=== PATIENT | male | born 1945 | race Caucasian/White ===

== ENCOUNTER → 2017-07-18 | Outpatient (CLI) | payer BC ==
[2017-07-18 09:02] LABS: ALT 44 U/L (21-72); AST 25 U/L (17-59)
== END | disposition home or self-care (01) ==
LOC: LABWHC1 08:09
PROVIDERS: ATTEND Podiatrist Foot & Ankle Surgery
DX: K74.60 Unspecified cirrhosis of liver (principal)
CPT/HCPCS: 36415; 84450; 84460

== ENCOUNTER → 2018-02-26 | Outpatient (CLI) | payer OTHER ==
--- NOTE | 2018-02-26 16:11 | XR ---
EXAMINATION TYPE: XR chest 2V DATE OF EXAM: 02/26/2018 COMPARISON: None HISTORY: 72-year-old male with cough for 2 months TECHNIQUE: Frontal and lateral views FINDINGS: Heart normal size. Aorta and pulmonary vasculature within normal limits. Slight eventration of the an terior hemidiaphragms. Strandy atelectasis medial lung bases. No consolidation or pleural effusion. V ertebroplasty changes in the lumbar spine. IMPRESSION: No acute cardiopulmonary process.
== END | disposition home or self-care (01) ==
LOC: RADXRMAIN 15:04
PROVIDERS: ATTEND Otolaryngology
DX: R05 Cough (principal)
CPT/HCPCS: 71046

== ENCOUNTER → 2018-03-21 | Outpatient (CLI) | payer BC ==
[2018-03-21 11:00] LABS: Basophils % (A) 1 %; Eosinophils # (A) 0.1 k/uL (0-0.7); Eosinophils % (A) 2 %; HCT 45.4 % (39.0-53.0); HGB 15.4 gm/dL (13.0-17.5); Lymphocytes # (A) 1.2 k/uL (1.0-4.8); Lymphocytes % (A) 20 %; MCH 30.5 pg (25.0-35.0); MCHC 33.9 g/dL (31.0-37.0); MCV 89.9 fL (80.0-100.0); Mean Platelet Volume 7.3; Monocytes # (A) 0.4 k/uL (0-1.0); Monocytes % (A) 6 %; Neutrophils % (A) 70 %; Platelet Count 226 k/uL (150-450); RBC 5.05 m/uL (4.30-5.90); RDW 13.5 % (11.5-15.5); WBC 5.7 k/uL (3.8-10.6)
[2018-03-21 11:18] LABS: ALT 32 U/L (21-72); AST 24 U/L (17-59); Alkaline Phosphatase 44 U/L (38-126); Anion Gap 10 mmol/L; Bilirubin, Delta 0.3 mg/dL (0.0-0.2); Bilirubin,Unconjugated 0.6 mg/dL (0.0-1.1); Blood Urea Nitrogen 18 mg/dL (9-20); Calcium 9.1 mg/dL (8.4-10.2); Carbon Dioxide 26 mmol/L (22-30); Chloride 107 mmol/L (98-107); Glucose 87 mg/dL (74-99); Potassium 4.5 mmol/L (3.5-5.1); Sodium 143 mmol/L (137-145); Total Bilirubin 0.9 mg/dL (0.2-1.3); Total Protein 5.9 g/dL (6.3-8.2)
== END | disposition home or self-care (01) ==
LOC: LABWHC1 10:41
PROVIDERS: ATTEND Orthopaedic Surgery Sports Medicine
DX: M54.5 Low back pain (principal); M51.36 Other intervertebral disc degeneration, lumbar region; R53.83 Other fatigue; Z85.46 Personal history of malignant neoplasm of prostate
CPT/HCPCS: 36415; 80053; 82248; 82607; 84443; 85025

== ENCOUNTER → 2018-05-10 | Outpatient (CLI) | payer BC ==
[2018-05-10 09:25] LABS: HCT 46.1 % (39.0-53.0); HGB 15.9 gm/dL (13.0-17.5); MCH 31.4 pg (25.0-35.0); MCHC 34.4 g/dL (31.0-37.0); MCV 91.3 fL (80.0-100.0); Mean Platelet Volume 6.4; Platelet Count 220 k/uL (150-450); RBC 5.05 m/uL (4.30-5.90); RDW 13.6 % (11.5-15.5); WBC 8.1 k/uL (3.8-10.6)
[2018-05-10 09:32] LABS: Appearance,Urine Clear (Clear); Bilirubin,Urine Negative (Negative); Blood,Urine Negative (Negative); Color,Urine Yellow; Glucose,Urine (UA) Negative (Negative); Ketones,Urine Negative (Negative); Leukocyte Esterase,Urine Negative (Negative); Nitrite,Urine Negative (Negative); PH, Urine 6.5 (5.0-8.0); Protein,Urine Negative (Negative); Specific Gravity,Urine 1.017 (1.001-1.035); Urobilinogen,Urine <2.0 mg/dL (<2.0)
[2018-05-10 09:36] LABS: Partial Thromboplastin Time 24.1 sec (22.0-30.0); Prothrombin Time 9.7 sec (9.0-12.0)
[2018-05-10 09:44] LABS: ALT 47 U/L (21-72); AST 29 U/L (17-59); Alkaline Phosphatase 50 U/L (38-126); Anion Gap 9 mmol/L; Blood Urea Nitrogen 19 mg/dL (9-20); Calcium 9.3 mg/dL (8.4-10.2); Carbon Dioxide 25 mmol/L (22-30); Chloride 106 mmol/L (98-107); Glucose 98 mg/dL (74-99); Potassium 4.4 mmol/L (3.5-5.1); Sodium 140 mmol/L (137-145); Total Bilirubin 0.9 mg/dL (0.2-1.3); Total Protein 5.9 g/dL (6.3-8.2)
== END | disposition home or self-care (01) ==
LOC: LABPAT 08:41
PROVIDERS: ATTEND Orthopaedic Surgery Sports Medicine
DX: Z01.812 Encounter for preprocedural laboratory examination (principal)
CPT/HCPCS: 36415; 80053; 81003; 85027; 85610; 85730; 87070

== ENCOUNTER 2018-05-24 09:21 | Inpatient (IN) | payer BC, MEDICARE ==
[2018-05-18 10:30] VITALS: BMI 26.0
[~2018-05-24 09:21] MED LIST: ACETAMINOPHEN TAB 500 MG TAB PO ONE; DEXAMETHASONE SOD PHOSPHATE 10 MG/ML 1 ML VIAL IV ONE; HYDROmorphone 0.5 MG/0.5 ML SYRINGE IVP PRN; MIDAZOLAM 2 MG/2 ML VIAL IV PRN; ONDANSETRON 4 MG/2 ML VIAL IVP ONE; TRANEXAMIC ACID 1,000 MG in SODIUM CHLORIDE 0.9% 50 ML IVPB ONE; ceFAZolin IN SWFI 2 GM/20 ML SYRINGE IVP ONE
[2018-05-24] MEDS: LACTATED RINGERS 1,000 ML IV SCH ×3 (10:01→20:42)
[2018-05-24] MEDS ORDERED: ROPIVACAINE 246.25 MG, EPINEPHrine 0.5 MG, KETOROLAC 30 MG, cloNIDine HCL/PF 80 MCG, WA... MISCELLANE ONE ×5 (10:49)
[2018-05-24] MEDS ORDERED: MORPHINE SULFATE (PF) 0.3 MG/0.3 ML SYR ONE (11:14)
[2018-05-24] MEDS ORDERED: SODIUM CHLORIDE 0.9% 100 ML BAG ONE (11:14)
[2018-05-24] MEDS ORDERED: MIDAZOLAM 2 MG/2 ML VIAL ONE (11:14)
[2018-05-24] MEDS ORDERED: TRANEXAMIC ACID 1,000 MG/10 ML VIAL ONE (11:14)
[2018-05-24] MEDS ORDERED: fentaNYL (PF) 50 MCG/ML 2 ML AMP ONE (11:14)
[2018-05-24] MEDS ORDERED: ceFAZolin 3,000 MG in SODIUM CHLORIDE 0.9% IRRIGATIO 3,000 ML IRRIGATION ONE (11:30)
[2018-05-24] MEDS ORDERED: LACTATED RINGERS 1,000 ML IV ONE ×2 (12:40)
[2018-05-24] MEDS ORDERED: BISACODYL 10 MG SUPP RECTAL PRN (13:25)
[2018-05-24] MEDS ORDERED: ACETAMINOPHEN TAB 325 MG TAB PO PRN (13:25)
[2018-05-24] MEDS ORDERED: DIAZEPAM 5 MG TAB PO PRN (13:25)
[2018-05-24] MEDS ORDERED: traMADol 50 MG TAB PO PRN (13:25)
[2018-05-24] MEDS ORDERED: NA PHOS,M-B/NA PHOS,DI-BA 133 ML ENEMA RECTAL PRN (13:25)
[2018-05-24] MEDS ORDERED: HYDROcodone/APAP 7.5-325MG 1 EACH TAB PO PRN (13:25)
[2018-05-24] MEDS ORDERED: HYDROmorphone 0.5 MG/0.5 ML SYRINGE IVP PRN ×3 (13:25)
[2018-05-24] MEDS ORDERED: MAGNESIUM HYDROXIDE 2,400 MG/10 ML CUP PO PRN (13:25)
[2018-05-24] MEDS ORDERED: TEMAZEPAM 15 MG CAP PO PRN (13:25)
[2018-05-24] MEDS ORDERED: NALOXONE 0.4 MG/ML 1 ML VIAL IV PRN ×2 (13:25→14:08)
[2018-05-24] MEDS ORDERED: ONDANSETRON 4 MG/2 ML VIAL IVP PRN (13:25)
[2018-05-24] MEDS ORDERED: METOCLOPRAMIDE 5 MG/ML 2 ML VIAL IVP PRN (14:08)
[2018-05-24] MEDS ORDERED: diphenhydrAMINE 50 MG/ML 1 ML VIAL IVP PRN (14:08)
[2018-05-24] MEDS ORDERED: PROMETHAZINE INJ 6.25 MG in SODIUM CHLORIDE 0.9% 50 ML IVPB PRN (14:08)
[2018-05-24] MEDS ORDERED: NALBUPHINE 10 MG/ML VIAL (10ML MDV) IV PRN (14:08)
--- NOTE | 2018-05-24 14:10 | XR ---
EXAMINATION TYPE: XR knee limited RT DATE OF EXAM: 05/24/2018 CLINICAL HISTORY: Right knee pain and arthritis status post total knee replacement. TECHNIQUE: Portable AP and crosstable lateral views of the right knee are obtained immediately posto peratively. COMPARISON: None FINDINGS: Metallic hardware from total right knee arthroplasty is seen and appears satisfactory in a lignment and position. There is evidence of recent surgery with diffuse subcutaneous gas and mild so ft tissue swelling noted. IMPRESSION: METALLIC HARDWARE FROM TOTAL RIGHT KNEE ARTHROPLASTY IS SATISFACTORY IN ALIGNMENT.
--- NOTE | 2018-05-24 14:30 | OP ---
OPERATIVE REPORT DATE OF PROCEDURE: 05/24/2018 SURGEON: Tee Eli MD [facility] CODER: VASILE Santillan. PREOPERATIVE DIAGNOSIS: Right knee osteoarthrosis. POSTOPERATIVE DIAGNOSIS: Right knee osteoarthrosis. OPERATION: Right total knee arthroplasty. ANESTHESIA: Spinal with sedation. ESTIMATED BLOOD LOSS: 100 mL. TOURNIQUET TIME: 58 minutes at 250 mmHg. COMPLICATIONS: None apparent. DRAINS: None. DISPOSITION: Postanesthesia care unit. INDICATIONS: Wilbur is a 72-year-old male with longstanding history of right knee pain. History and physical examination are consistent with advanced right knee osteoarthrosis. He has been through significant course of nonoperative management up to this point. Further treatment options were discussed and he has decided to go forward with a right total knee arthroplasty. The risks of procedure were discussed with him in detail. These risks include, but are not limited to risk of infection, nerve damage, bleeding, pain and risk of deep vein thrombosis which could lead to fatal pulmonary embolism. There is also risk of loosening of the implant which could require revision operation. The patient understands these risks. All of his questions were answered to his satisfaction. An appropriate informed consent was obtained. DESCRIPTION OF THE PROCEDURE: The patient was identified in preoperative holding area. Surgical site was marked by both the patient and myself. He was given 2 g of Ancef IV for prophylactic purposes. He was then transferred to the operative suite. He was placed supine on the operative table. Spinal anesthetic was administered and dosed per the Anesthesia Department without apparent complication. Examination under anesthesia was then performed. The patient was approximately 5 degrees shy of full extension. He had 110 degrees of flexion. The medial collateral ligament, lateral collateral ligament and posterior cruciate ligaments were stable. A tourniquet was then placed high on the right upper thigh well-padded in preparation for surgery. The patient's right lower extremity was then prepped and draped in usual sterile fashion. Standard surgical pause was then undertaken to ensure that we were operating on the correct site and that appropriate preoperative antibiotics have been given. All staff in the room were in agreement and we proceeded. The outlines of the patella were marked with surgical pen. A planned 10-12 cm vertical incision centered over the patella was marked with surgical pen. The leg was then exsanguinated with an Esmarch dressing. The knee was then flexed and the tourniquet was inflated to 250 mmHg. The total tourniquet time for the procedure was 58 minutes The incision was then made with a 10 blade scalpel. Dissection was carried down sharply to the overlying fascia. Great care was taken to minimize the skin flaps. The knee was then exposed using a standard medial parapatellar approach. A small cuff of quadriceps tendon was then left for suturing. He was in a mild amount of varus preoperatively. A standard medial release was then made. Superficial medial collateral ligament was dissected off the bone around to the posterior aspect of the proximal tibia. The medial meniscus was then excised as well. The lateral meniscus was also released anteriorly. The leg was then externally rotated. The patella was everted. The knee was flexed. The retractors were then placed to protect the collateral ligaments. I then proceeded to remove the infrapatellar fat pad. This was excised sharply, tangentially with fibers of the patellar tendon. I then proceeded to remove peripheral osteophytes. This was done with a rongeur. I then proceeded with the distal femoral resection. He did have a small flexion contracture. I decided to take an extra 2 mm from the distal femur. A planned 11 mm resection was done. The femoral canal was then entered in the midline of the femur approximately 10 mm anterior to the origin of the posterior cruciate ligament. The twin was then advanced down the center of the femur and placed intramedullary. Based on preoperative radiographs, the angle between the anatomic and mechanical axis of the femur was approximately 4 to 5 degrees. The valgus angle of the distal femoral cutting guide was then set at 4 degrees for the right knee. This femoral cutting guide was then advanced over the intramedullary twin. This was seated firmly against the femur. I then as mentioned planned to take 11 mm off the distal femur. The cutting block was then secured onto the femur with pins. The jig was removed and the distal femoral cut was made through the slot of the block. The pins were then removed and the distal femoral cutting block was removed. The accuracy of the distal femoral cuts was checked with two flat bars. I then proceeded with femoral sizing. The posterior referencing sizing guide was held firmly against the resected distal surface of the femur. The posterior condyles were resting on the posterior plane of the guide. The sizing stylus was then placed onto the anterior femur. The size was measured as a size 8. I then assessed for femoral rotation. The plan was for 3 degrees of external rotation. Three degrees of external rotation was placed onto the jig. These holes were then marked. I then confirmed the rotation by 3 separate methods. This was done using the epicondylar axis as well as Whitesides line and posterior referencing. It was deemed that the external rotation was proper. I then went forward with placing the femoral cutting block. This was placed over the previously placed pin holes. The [place] wing was then placed onto the anterior slots to ensure that we would not notch the anterior femur with the anterior femoral cut. I then proceeded with the anterior femoral cut. This was flush with the anterior cortex of the femur. The posterior cuts were then made followed by the anterior chamfer cut, then the posterior chamfer cut. The cutting block was then removed. Throughout the resection, the collateral ligaments were protected with retractors. I then placed a trial size 8 femur. It fit very nice medial-lateral and fit flush with the distal end of the femur. The drill holes were then made. I then proceeded with the tibial cut. I planned for cruciate retaining knee. The guide was placed and set for varus valgus and then for slope. The height was set for approximate 2 mm resection from the medial tibial plateau which was the lower side. I was happy with the alignment and the amount of resection. The cutting block was then pinned to the proximal tibia. The alignment twin was removed and the proximal tibia was resected with a reciprocating saw. Again this was done with retractors protecting the collateral ligaments as well as the posterior cruciate ligament. I then proceeded to evaluate the flexion and extension gaps. A 10 mm block was placed. The flexion-extension gaps were equal. I then proceeded with resection of the posterior osteophytes. Very minimal posterior osteophytes. This was done using a curved osteotome. This resected the posterior osteophytes and posterior capsule stripping was also done off the posterior aspect of the femur at this time. The osteophytes were then removed. I then proceeded with resection of the patella. The thickness of patella was measured using the caliper. He had a very worn out patella. The lateral facet was very thin. He had decent thickness on the medial facet that was approximately 18 mm. I then performed a resection and confirmed the resection to be equal in 4 quadrants using a caliper. Approximately 12 mm bone remained after the resection. A 26 x 7.5 standard patellar trial was then placed. This was placed as medially as possible as this was the only place for good bone for a patellar implant as I said the lateral facet was completely worn out and very thin. The holes were then drilled and the trial was then placed. I then proceeded with sizing the tibial plate. A size E tibial plate fit very nicely. I then placed the trial femur, the tibial tray and patellar button. A 10 mm trial tibial insert was also placed. The components fit very nicely. He had full extension and flexion. The extension and flexion gaps were equal and stable to both varus and valgus stress. The patella tracked appropriately. The tibial tray rotation was marked with a Bovie. This was externally rotated properly. I then proceeded with tibial preparation. I first drilled the femoral holes, removed femoral component. The tibial tray was then set for proper external rotation as well as mediolateral placement onto the tibia. It was then pinned into place. I then proceeded with punching the keel. I then decided to proceed with cementing of all of our components. The knee was thoroughly irrigated with sterile saline solution via pulse lavage. The lateral geniculate artery was identified and cauterized. All blood was removed from the bone of the tibia, femur and patella with pulse lavage. I then proceed with cementing. Two packs of antibiotic bone cement prepared on the back table by the surgical instrument technician. I then proceed with cementing of the tibia first. The cement was impacted in the keel as well as deeply seated in the bone. A second coat of cement was then placed. The tibia was then impacted into place. Excess cement was removed with [place]'s and Joker's I then proceeded with cementing the femoral component. The femoral component was also cemented using standard technique. Excess cement was removed. A 10 mm trial insert was then placed into the knee. It was brought into full extension with a constant axial load placed until the cement had hardened. The patellar component was then cemented. This was held firmly with a compressive device until the cement had dried. When the cement had dried, the knee was taken out of extension. All excess cement was removed from around the prosthesis. I then trialed the knee with a 10 mm insert. The flexion-extension gaps were appropriate. The knee was stable. It came into full extension. I decided to go forward with a 10 mm medial congruent cross-linked cruciate- retaining tibial insert. Polyethylene was then placed onto the tray and locked into place. The knee was then reduced. The knee was again further irrigated with sterile saline solution with antibiotic added. The tourniquet was then deflated. The total tourniquet time for the procedure was 58 minutes at 250 mmHg. Final components were Miriam Persona size 8, cruciate-retaining femoral component size E tibial tray, a 10 mm medial congruent cruciate-retaining polyethylene insert, and a 26 x 7.5 mm patella. I then proceeded with closure. Again, the knee was thoroughly irrigated. The quadriceps tendon and the medial retinaculum were reapproximated with #2 Ethibond suture. The extensor mechanism was then closed with a running #2 Quill suture. Subcutaneous tissues were then closed with 2-0 Vicryl interrupted suture. The skin was closed with a running 3-0 Quill suture. Dermabond was applied to the incision. Sterile compressive dressing was then applied. All sponge and needle counts were deemed correct prior to closure. The patient tolerated the procedure without apparent complication. He was transferred to recovery room in stable condition. MMODL / IJN: [id number] / KORY
[2018-05-24] MEDS: ceFAZolin IN SWFI 2 GM/20 ML SYRINGE IVP SCH (18:03)
[2018-05-24] MEDS: ATORVASTATIN 40 MG TAB PO SCH (20:43)
[2018-05-24] MEDS: SENNOSIDES-DOCUSATE SODIUM 1 EACH TAB PO SCH (20:43)
[2018-05-24] MEDS: ASPIRIN 325 MG TAB PO SCH (20:43)
[2018-05-25] MEDS: ceFAZolin IN SWFI 2 GM/20 ML SYRINGE IVP SCH (01:38)
[2018-05-25] MEDS: LACTATED RINGERS 1,000 ML IV SCH ×3 (05:08→20:05)
[2018-05-25] MEDS: ASPIRIN 325 MG TAB PO SCH ×2 (08:06→21:31)
--- NOTE | 2018-05-25 08:38 | P.PN ---
Subjective Progress Note Date: 05/25/18 This is a 72-year-old male who is status post right total knee arthroplasty. This is postoperative day #1. Patient is seen and evaluated at bedside. Patient states that his pain has been well controlled. Patient denies any fever/ chills, numbness, weakness, tingling, abdominal pain, shortness of breath or chest pain. Objective - Vital Signs Vital signs: Vital Signs Temp 98.4 F 05/25/18 07:00 Pulse 67 05/25/18 07:00 Resp 16 05/25/18 07:00 BP 109/73 05/25/18 07:00 Pulse Ox 92 L 05/25/18 07:00 Intake & Output 05/24/18 05/25/18 05/25/18 18:59 06:59 18:59 Intake Total 1101 800 Output Total 650 Balance 451 800 Weight 75.523 kg Intake: IV 1101 Intake, IV Titration 800 Amount Lactated Ringers 1,000 ml 800 @ 100 mls/hr IV .Q10H [facility] Rx#:[id number] Output: Urine 550 Estimated Blood Loss 100 Other: Voiding Method Urinal # Voids 2 - Exam Vital signs are stable. Patient is in no acute distress and is alert and oriented 3. Calf is soft and nontender to palpation. Dressing is clean, dry, and intact. Patient has full foot and ankle motion without pain or difficulty. Neurovascular status and circulatory status are intact. Assessment and Plan (1) Primary osteoarthritis of right knee Current Visit: Yes Status: Acute Code(s): M17.11 - UNILATERAL PRIMARY OSTEOARTHRITIS, RIGHT KNEE SNOMED Code(s): 289930813021091 (2) S/P total knee arthroplasty Current Visit: Yes Status: Acute Code(s): Z96.659 - PRESENCE OF UNSPECIFIED ARTIFICIAL KNEE JOINT SNOMED Code(s): 5334698605547 Plan: #1 Continue with routine postoperative care and daily dressing changes. #2 Anticoagulation with aspirin. #3 Physical therapy today. #4 Appreciate input from medicine. #5 Anticipate discharge home with home care likely tomorrow.
[2018-05-25 08:43] LABS: Basophils % (A) 0 %; Eosinophils % (A) 0 %; HCT 37.7 % (39.0-53.0); Lymphocytes # (A) 0.9 k/uL (1.0-4.8); Lymphocytes % (A) 9 %; MCH 31.3 pg (25.0-35.0); MCHC 34.4 g/dL (31.0-37.0); MCV 90.8 fL (80.0-100.0); Mean Platelet Volume 6.8; Monocytes # (A) 0.7 k/uL (0-1.0); Monocytes % (A) 7 %; Neutrophils # (A) 7.9 k/uL (1.3-7.7); Neutrophils % (A) 82 %; Platelet Count 185 k/uL (150-450); RBC 4.15 m/uL (4.30-5.90); RDW 13.3 % (11.5-15.5); WBC 9.6 k/uL (3.8-10.6)
[2018-05-25] MEDS ORDERED: MULTIVITAMINS, THERA 1 EACH TAB PO SCH (12:00)
--- NOTE | 2018-05-25 14:51 | P.CONS ---
History of Present Illness - Reason for Consult Consult date: 05/25/18 Medical management of hyperlipidemia and other medical problems - Chief Complaint Elective right total knee arthroplasty - History of Present Illness Patient is a 72-year-old male with a known history of prostate cancer, osteoarthritis, hyperlipidemia and other medical problems was admitted to the hospital for right total knee arthroplasty due to osteoarthritis. Currently patient is sitting in the chair comfortably. Pain is fairly controlled. No complaints of nausea vomiting abdominal pain no headache or dizziness or lightheadedness. No chest pain or shortness of breath. Review of Systems Constitutional: Patient denies any fever or chills . No generalized weakness or weight loss. Abdomen: Patient denied nausea vomiting and diarrhea and abdominal pain. Cardiovascular: Patient denies any chest pain or short of breath no palpitations. Respiratory: patient denied any cough is from production. No shortness of breath Neurologic: Patient denied any numbness or tingling headache. Musculoskeletal: Patient denies any complaints of joint swelling or deformity. Right knee pain postoperative Skin: Negative Psychiatric: Negative Endocrine: No heat or cold intolerance. No recent weight gain. Genitourinary: No dysuria or hematuria. All other 14 point ROS negative except the above Past Medical History Past Medical History: Cancer, Hyperlipidemia, Osteoarthritis (OA), Prostate Disorder Additional Past Medical History / Comment(s): PROSTATE CANCER History of Any Multi-Drug Resistant Organisms: None Reported Past Surgical History: Appendectomy, Hernia Repair, Tonsillectomy Additional Past Surgical History / Comment(s): LEFT KNEE SURGERY ARTHROSCOPIC , RIGHT KNEE SURGERY ARTHROSCOPIC X2, CATARACT SURGERY-BILATERAL EYES ,INGUINAL HERNIA X3 Past Anesthesia/Blood Transfusion Reactions: Motion Sickness, Postoperative Nausea & Vomiting (PONV) Past Psychological History: No Psychological Hx Reported Smoking Status: Never smoker Past Alcohol Use History: Occasional Past Drug Use History: None Reported - Past Family History Mother Family Medical History: No Reported History Medications and Allergies Home Medications Medication Instructions Recorded Confirmed Type Aspirin 81 mg PO DAILY 05/18/18 05/24/18 History Atorvastatin [Lipitor] 40 mg PO HS 05/18/18 05/24/18 History Aspirin 325 mg PO BID #60 tab 05/24/18 Rx Docusate [Colace] 100 mg PO BID #60 capsule 05/24/18 Rx HYDROcodone/APAP 7.5-325MG [[place] 1 - 2 tab PO Q6HR PRN #60 tab 05/24/18 Rx 7.5-325] Allergies Allergy/AdvReac Type Severity Reaction Status Date / Time No Known Allergies Allergy Verified 05/24/18 16:52 Physical Exam Vitals: Vital Signs Temp Pulse Pulse Resp BP BP Pulse Ox 05/25/18 07:00 98.4 F 67 16 109/73 92 L 05/25/18 01:10 97.9 F 70 16 108/64 91 L 05/25/18 00:00 16 05/24/18 19:37 98.0 F 61 16 114/71 96 05/24/18 17:29 97.4 F L 62 16 127/81 99 05/24/18 17:08 16 05/24/18 16:41 57 L 18 126/80 97 05/24/18 16:26 57 L 18 139/78 97 05/24/18 16:11 51 L 18 125/73 97 05/24/18 15:45 56 L 18 125/73 97 05/24/18 15:27 56 L 18 133/73 97 05/24/18 15:15 59 L 18 119/75 97 05/24/18 14:58 59 L 18 113/67 97 05/24/18 14:41 53 L 18 100/64 97 05/24/18 14:26 52 L 18 100/66 97 05/24/18 14:11 51 L 18 101/66 97 05/24/18 13:56 49 L 18 111/75 97 05/24/18 13:41 49 L 18 105/63 97 05/24/18 13:24 97.1 F L 49 L 18 111/65 97 Intake and Output 05/24/18 05/25/18 05/25/18 22:59 06:59 14:59 Intake Total 300 500 Output Total 550 Balance -250 500 Intake: Intake, IV Titration 300 500 Amount Lactated Ringers 1,000 ml 300 500 @ 100 mls/hr IV .Q10H [facility] Rx#:[id number] Output: Urine 550 Other: Voiding Method Urinal # Voids 2 Weight 75.523 kg PHYSICAL EXAMINATION: Patient is lying in the bed comfortably, no acute distress, awake alert and oriented.. HEENT: Normocephalic. Neck is supple. Pupils reactive. Nostrils clear. Oral cavity is moist. Ears reveal no drainage. Neck reveals no JVD, carotid bruits, or thyromegaly. CHEST EXAMINATION: Trachea is central. Symmetrical expansion. Lung kong clear to auscultation and percussion. CARDIAC: Normal S1, S2 with no gallops. No murmurs ABDOMEN: Soft. Bowel sounds normal. No organomegaly. No abdominal bruits. Extremities: reveal no edema. No clubbing or cyanosis Neurologically awake, alert, oriented x3 with well-coordinated movements. No focal deficits noted Skin: No rash or skin lesions. Psychiatric: Coperative. Nonsuicidal Musculoskeletal: No joint swelling or deformity. Right knee surgical site intact. Decreased range of motion.. Results CBC & Chem 7: 05/25/18 07:53 Labs: Abnormal Lab Results - Last 24 Hours (Table) 05/25/18 Range/Units 07:53 RBC 4.15 L (4.30-5.90) m/uL Hct 37.7 L (39.0-53.0) % Neutrophils # 7.9 H (1.3-7.7) k/uL Lymphocytes # 0.9 L (1.0-4.8) k/uL Assessment and Plan Assessment: Status post right total knee arthroplasty due to primary osteoarthritis Hyperlipidemia continue the statins prostate cancer DVT prophylaxis with aspirin Plan: Patient denied on pain medications and bowel regimen. Continue the statins. Continue the current management otherwise will follow closely and further recommendations based on clinical course. Encourage ambulation and incentive spirometry. Time with Patient: Greater than 30
[2018-05-25] MEDS: HYDROcodone/APAP 7.5-325MG 1 EACH TAB PO PRN ×2 (17:57→23:49)
[2018-05-25] MEDS: hydrOXYzine PAMOATE 25 MG CAP PO PRN ×2 (20:12→23:46)
[2018-05-25] MEDS: SENNOSIDES-DOCUSATE SODIUM 1 EACH TAB PO SCH (21:31)
[2018-05-25] MEDS: ATORVASTATIN 40 MG TAB PO SCH (21:31)
[2018-05-26 08:00] VITALS: BP 151/88; PULSE 75; RESP 16; TEMP 98.4
[2018-05-26] MEDS: LACTATED RINGERS 1,000 ML IV SCH ×2 (08:06)
--- NOTE | 2018-05-26 09:12 | P.DS ---
Providers Date of admission: 05/24/18 09:21 Expected date of discharge: 05/26/18 Attending physician: Tee Eli Consults: 05/24/18 13:25 Consult Physician Routine Consulting Provider: Leona Manzanares Consult Reason/Comments: post op medical management Do you want consulting provider notified?: Yes Primary care physician: Tanner Prieto Reyes - Discharge Diagnosis(es) (1) Primary osteoarthritis of right knee Current Visit: Yes Status: Acute (2) S/P total knee arthroplasty Current Visit: Yes Status: Acute Hospital Course: This is a 72-year-old male with known history of degenerative arthritis of the right knee. The patient presents for evaluation. After discussion and consideration patient elects to proceed with total knee arthroplasty. The patient is seen preoperatively by Dr. Eli and medically cleared for surgery by their primary care physician. Patient is admitted to [facility] on 05/24/2018 for total knee arthroplasty. The procedures performed without complication or sequelae. The patient is doing well postoperatively. Labs and vital signs are stable on day of discharge. On day of discharge patient's knee incision is healing well. There is minimal erythema. There is no drainage noted at this time. There is minimal soft tissue swelling to the knee. Patient has full foot and ankle motion without difficulty or pain. Neurovascular status to the right lower extremity is intact. Patient is discharged home in good condition. Please see med rec for accurate list of home medications. Plan - Discharge Summary Discharge Rx Participant: Yes New Discharge Prescriptions: New Docusate [Colace] 100 mg PO BID #60 capsule HYDROcodone/APAP 7.5-325MG [[place] 7.5-325] 1 - 2 tab PO Q6HR PRN #60 tab PRN Reason: Pain Aspirin 325 mg PO BID #60 tab No Action Atorvastatin [Lipitor] 40 mg PO HS Aspirin 81 mg PO DAILY Discharge Medication List Aspirin 81 mg PO DAILY 05/18/18 [History] Atorvastatin [Lipitor] 40 mg PO HS 05/18/18 [History] Aspirin 325 mg PO BID #60 tab 05/24/18 [Rx] Docusate [Colace] 100 mg PO BID #60 capsule 05/24/18 [Rx] HYDROcodone/APAP 7.5-325MG [[place] 7.5-325] 1 - 2 tab PO Q6HR PRN #60 tab [Rx] Follow up Appointment(s)/Referral(s): [facility], [NON-STAFF] - Tee Eli MD [STAFF PHYSICIAN] - 06/08/18 2:00 pm Activity/Diet/Wound Care/Special Instructions: Keep wound clean and dry Take meds as directed Follow-up with Dr. Eli in office Weight bear as tolerated May shower in 3 days if no bleeding [facility] - [phone] - will deliver to bedside Discharge Disposition: HOME WITH HOME HEALTH SERVICES
[2018-05-26] MEDS: ASPIRIN 325 MG TAB PO SCH (09:24)
[2018-05-26] MEDS: HYDROcodone/APAP 7.5-325MG 1 EACH TAB PO PRN (10:46)
[2018-05-26] MEDS: hydrOXYzine PAMOATE 25 MG CAP PO PRN (10:47)
--- NOTE | 2018-05-27 01:11 | P.PN ---
Subjective Progress Note Date: 05/26/18 Principal diagnosis: Knee arthroplasty Patient is a 72-year-old male with a known history of prostate cancer, osteoarthritis, hyperlipidemia and other medical problems was admitted to the hospital for right total knee arthroplasty due to osteoarthritis. Currently patient is sitting in the chair comfortably. Pain is fairly controlled. No complaints of nausea vomiting abdominal pain no headache or dizziness or lightheadedness. No chest pain or shortness of breath. 05/26/2018 Patient denied any complaints of knee pain. No chest pain or shortness of breath. No acute overnight issues. Patient is eager to be discharged home. Otherwise discharge medication reconciliation was done. Objective - Vital Signs Vital signs: Vital Signs Temp 98.4 F 05/26/18 07:59 Pulse 75 05/26/18 07:59 Resp 16 05/26/18 07:59 BP 151/88 05/26/18 07:59 Pulse Ox 94 L 05/26/18 09:58 Intake & Output 05/25/18 05/26/18 05/26/18 18:59 06:59 18:59 Intake Total 240 Output Total 250 400 Balance -250 240 -400 Weight 75.523 kg Intake: Oral 240 Output: Urine 250 400 Other: Voiding Method Toilet Urinal # Voids 2 2 - Exam PHYSICAL EXAMINATION: Patient is lying in the bed comfortably, no acute distress, awake alert and oriented.. HEENT: Normocephalic. Neck is supple. Pupils reactive. Nostrils clear. Oral cavity is moist. Ears reveal no drainage. Neck reveals no JVD, carotid bruits, or thyromegaly. CHEST EXAMINATION: Trachea is central. Symmetrical expansion. Lung kong clear to auscultation and percussion. CARDIAC: Normal S1, S2 with no gallops. No murmurs ABDOMEN: Soft. Bowel sounds normal. No organomegaly. No abdominal bruits. Extremities: reveal no edema. No clubbing or cyanosis Neurologically awake, alert, oriented x3 with well-coordinated movements. No focal deficits noted Skin: No rash or skin lesions. Psychiatric: Coperative. Nonsuicidal Musculoskeletal: No joint swelling or deformity. Right knee surgical site intact. Normal range of motion. - Labs CBC & Chem 7: 05/25/18 07:53 Assessment and Plan Assessment: Status post right total knee arthroplasty due to primary osteoarthritis Hyperlipidemia continue the statins prostate cancer DVT prophylaxis with aspirin Plan: Patient is on pain medications and bowel regimen. Continue the statins. Continue the current management otherwise will follow closely and further recommendations based on clinical course. Encourage ambulation and incentive spirometry. Time with Patient: Greater than 30
== END 2018-05-26 11:56 | disposition home health service (06) | DRG 470 ==
LOC: 2ORMAIN 09:21 → 3SUR 16:47
PROVIDERS: ADMIT Orthopaedic Surgery Sports Medicine; ATTEND Orthopaedic Surgery Sports Medicine
PROC: 0SRC0J9 Replacement of Right Knee Joint with Synthetic Substitute, Cemented, Open Approach (ICD-10-PCS; principal; 2018-05-24 11:00)
DX: M17.11 Unilateral primary osteoarthritis, right knee (principal); E78.5 Hyperlipidemia, unspecified; C61 Malignant neoplasm of prostate; Z82.49 Family history of ischemic heart disease and other diseases of the circulatory system; Z79.82 Long term (current) use of aspirin; Z79.899 Other long term (current) drug therapy; Z90.49 Acquired absence of other specified parts of digestive tract; Z98.42 Cataract extraction status, left eye; Z98.41 Cataract extraction status, right eye
CPT/HCPCS: 85025

== ENCOUNTER → 2020-03-20 | Outpatient (CLI) | payer BC, MEDICARE ==
--- NOTE | 2020-03-20 10:27 | XR ---
EXAMINATION TYPE: XR chest 2V DATE OF EXAM: 03/20/2020 COMPARISON: Chest x-ray February 26, 2018. HISTORY: Cough, congestion, and shortness of breath. TECHNIQUE: Frontal and lateral views of the chest are obtained. FINDINGS: Elevation and eventration anterior aspect right hemidiaphragm redemonstrated. There is no s uspicious new focal air space opacity, pleural effusion, or pneumothorax seen. The cardiac silhouett e size is stable and within normal limits. Redemonstration of vertebroplasty in the lumbar spine at 2 levels. IMPRESSION: No new acute pulmonary process. No significant change from prior.
== END ==
LOC: LABWHC1 07:38
PROVIDERS: ATTEND Otolaryngology
DX: Z03.818 Encounter for observation for suspected exposure to other biological agents ruled out (principal); R09.89 Other specified symptoms and signs involving the circulatory and respiratory systems
CPT/HCPCS: 71046; 87635

== ENCOUNTER → 2020-06-03 | Outpatient (CLI) | payer BC ==
--- NOTE | 2020-06-12 10:20 | CT ---
EXAMINATION TYPE: CT soft tissue neck w con DATE OF EXAM: 06/03/2020 COMPARISON: No prior CT soft tissue neck HISTORY: Prostate cancer CT DLP: 356.50 mGycm CONTRAST: Patient injected with 50 mL of Isovue 300. TECHNIQUE: Axial images at 3 mm thick sections. Reconstructed images in the coronal plane and sagitt al plane are reviewed. FINDINGS: Limited CT sections are obtained the lung apices. The lung apices appear clear. CT neck: The torus tubarius and fossa of Rosenmuller are normal. Fashion Patternmaker spaces are normal. Para nasal sinuses and mastoid air cells are clear. Parotid glands appear normal and symmetrical. Submandibular glands, are normal. Parapharyngeal spac es are normal. No suspicious adenopathy is evident. The hypopharynx appears within normal limits. Vocal cord level appear symmetrical. Thyroid as visualized is normal. There are degenerative changes within the cervical spine. Mild loss of disc height is present. Spondy losis is present. No suspicious lytic or sclerotic lesions are evident within the [id number]. Prev ertebral space is normal. IMPRESSIONS: 1. No suspicious abnormality to suggest metastatic prostate cancer.
--- NOTE | 2020-06-12 10:41 | CT ---
EXAMINATION TYPE: CT ChestAbdPelvis w con DATE OF EXAM: 06/03/2020 INDICATION: Prostate cancer COMPARISON: 05/06/2020 CTA coronary arteries, limited [id number] comparison CT DLP: 1318.90 mGycm CONTRAST: Performed with Oral Contrast and with IV Contrast, patient injected with 50 mL of Isovue 300. TECHNIQUE: Axial images at 5 mm thick sections. Reconstructed images in the coronal plane. Delayed images through the kidneys. FINDINGS: CT CHEST: Small oval hypodensity may be in the posterior right mid thyroid lobe. This appeared more artifact on the CT soft tissue neck although persistence on this exam suggests this may be a real finding. This could be evaluated with ultrasound. No suspicious lung nodules or focal infiltrates are present. No enlarged mediastinal or hilar adenopathy is evident. Few scattered small lymph nodes are present. The ascending aorta diameter at the level of the main pulmonary artery is 3.5 cm. The main pulmonary artery diameter at the bifurcation is 2.[address] ABDOMEN: Liver: There is a 1.6 cm cystlike area measuring 21 Hounsfield units in the posterior left lobe liver . Series 4 image 45. Monitoring is recommended. This is not clearly a simple cyst. Spleen: Normal Pancreas: Normal Adrenal glands: The adrenal glands are normal. Gallbladder: Normal Kidneys: No masses are evident. No hydronephrosis is present. A 0.5 cm anterior medial mid left pablo al cortical cyst is present. Aorta: Normal Inferior vena cava: Normal. CT PELVIS: Loops of bowel within the abdomen and pelvis are normal. There are loops of bowel which are incom pletely distended or lack oral contrast limiting their evaluation. Scattered diverticuli are within t he sigmoid colon. No acute diverticulitis is evident. Appendix: Normal as visualized. Urinary bladder: Normal. Genitourinary structures: Prostate is not identified. There are surgical clips suggesting prior prost atectomy. No recurrent masses within the lower pelvis are evident. Osseous structures: There is an area of sclerosis within the lateral right seventh rib region. Series 8 image 55. There is irregular sclerotic area within the medial right iliac wing. Series 4 image 96. There is an old compression deformity of L2. Prior vertebroplasty at L1 and L2 is present. Subtle sc lerosis may be within the anterior lateral right rib. Series 4 image 52 additional subtle right anter ior upper rib sclerotic area may be present. Series 4 image 23 and series 4 image 14 posterior right rib. IMPRESSIONS: 1. Sclerotic lesions within several right ribs and the right medial ilium suspicious for sclerotic me tastases. 2. Possible small cyst within the right lobe thyroid. This could be evaluated with ultrasound. 3. Probable cyst within the posterior left lobe liver. Metastatic lesion is considered less likely. R ecommend ultrasound for additional evaluation.
== END | disposition home or self-care (01) ==
LOC: RADCTMAIN 06:16
PROVIDERS: ATTEND Internal Medicine Hematology & Oncology
DX: Z08 Encounter for follow-up examination after completed treatment for malignant neoplasm (principal); Z85.46 Personal history of malignant neoplasm of prostate; E78.5 Hyperlipidemia, unspecified; R05 Cough
CPT/HCPCS: 82565; 84520; 70491; 71260; 74177; Q9967

== ENCOUNTER → 2020-07-01 | Outpatient (CLI) | payer BC | END | disposition home or self-care (01) | LOC: LABWHC1 09:04 | PROVIDERS: ATTEND Internal Medicine Hematology & Oncology | DX: Z08 Encounter for follow-up examination after completed treatment for malignant neoplasm (principal); E78.5 Hyperlipidemia, unspecified; R05 Cough; Z85.48 Personal history of malignant neoplasm of epididymis | CPT/HCPCS: 36415; 86769 ==

== ENCOUNTER 2021-05-18 11:30 | Day surgery (SDC) | payer BC ==
[2021-05-13 12:07] VITALS: BMI 25.9
[~2021-05-18 11:30] MED LIST changes: -ACETAMINOPHEN TAB 500 MG TAB PO ONE; -DEXAMETHASONE SOD PHOSPHATE 10 MG/ML 1 ML VIAL IV ONE; +HEPARIN SODIUM,PORCINE/PF 5,000 UNIT/0.5 ML SYRINGE SQ PRN; -HYDROmorphone 0.5 MG/0.5 ML SYRINGE IVP PRN; -MIDAZOLAM 2 MG/2 ML VIAL IV PRN; -ONDANSETRON 4 MG/2 ML VIAL IVP ONE; -TRANEXAMIC ACID 1,000 MG in SODIUM CHLORIDE 0.9% 50 ML IVPB ONE; -ceFAZolin IN SWFI 2 GM/20 ML SYRINGE IVP ONE
[2021-05-18] MEDS ORDERED: ONDANSETRON 4 MG/2 ML VIAL ONE (12:00)
[2021-05-18] MEDS ORDERED: LACTATED RINGERS 1,000 ML IV ONE (12:08)
[2021-05-18] MEDS ORDERED: LIDOCAINE 1% (10MG/ML) FOR IV START INTRADERMA ONE (12:08)
[2021-05-18] MEDS ORDERED: DEXAMETHASONE SOD PHOSPHATE 4 MG/ML 1 ML VIAL IVP ONE (12:09)
[2021-05-18] MEDS ORDERED: ONDANSETRON 4 MG/2 ML VIAL IVP ONE (12:09)
[2021-05-18] MEDS ORDERED: ePHEDrine SULFATE/0.9% NACL/PF 50 MG/5 ML SYRINGE IV ONE (12:31)
[2021-05-18] MEDS ORDERED: fentaNYL (PF) 50 MCG/ML 2 ML AMP ONE (12:31)
[2021-05-18] MEDS ORDERED: LIDOCAINE 1% INJ 10MG/ML (20 ML MDV) ONE (12:31)
[2021-05-18] MEDS ORDERED: PROPOFOL 10 MG/ML 20 ML VIAL IV ONE (12:31)
[2021-05-18] MEDS ORDERED: SUCCINYLCHOLINE CHLORIDE 100 MG/5 ML SYR IV ONE (12:31)
[2021-05-18] MEDS ORDERED: LIDOCAINE 1%-EPI 1:100,000 20 ML VIAL SQ ONE ×2 (13:37→14:05)
[2021-05-18] MEDS ORDERED: GELATIN SPONGE,ABSORB (LARGE) 1 EACH SPONGE TOPICAL ONE ×2 (13:40→14:05)
[2021-05-18] MEDS ORDERED: LIDOCAINE 2% GEL 30 ML TUBE TOPICAL ONE ×2 (13:41→14:05)
[2021-05-18 14:30] VITALS: TEMP 97
[2021-05-18 14:36] VITALS: RESP 16
--- NOTE | 2021-05-18 14:47 | P.OP ---
Date of Procedure: 05/18/21 Preoperative Diagnosis: Internal hemorrhoids Change in bowel Postoperative Diagnosis: Diverticulosis Grade 4 internal hemorrhoids External hemorrhoids Perianal skin tag Procedure(s) Performed: Colonoscopy with biopsy Hemorrhoidectomy Anesthesia: SAMIR Surgeon: Roberta Osorio Pathology: other (Biopsies of the cecum, ascending, transverse, descending, sigmoid, rectum. Internal hemorrhoids, external hemorrhoids, perianal skin tag) Condition: stable Disposition: same day Indications for Procedure: 35-year-old male presents today for colonoscopy and hemorrhoidectomy. He has been having a significant discomfort from his internal hemorrhoids and has tried multiple modalities of medical treatment over the past few years. These have been unsuccessful. He also has recently undergone further change in bowels with significant loose stool. Plan is for colonoscopy with hemorrhoidectomy. Risks, benefits and alternatives were provided to the patient. He did provide consent prior to attending the operating suite. Operative Findings: Diverticulosis Grade 4 internal hemorrhoids Perianal skin tag External hemorrhoids Description of Procedure: The patient was brought to the operating suite and placed in left lateral decubitus position. Adequate sedation was achieved and the patient did undergo endotracheal intubation. A digital rectal exam was performed and grade 4 internal hemorrhoids were palpated along with external hemorrhoids. A perianal skin tag was also noted. An endoscope was then placed in the rectum and advanced to the cecum as identified by my gentile including the appendiceal orifice and the ileocecal valve. The prep was good. The colonoscope was then slowly withdrawn, examining for any mucosal abnormalities. The cecum, ascending, transverse, descending and sigmoid colon were visualized adequately. There were no large neoplastic lesions noted throughout the colon. There were no obvious polyps noted throughout the colon. There was evidence of diverticulosis scattered through the sigmoid colon. Retroflexion was performed in the rectum and internal hemorrhoids were visible. Excess air was removed, the colonoscope was withdrawn. The patient was then placed in prone position. Bed was placed in jackknife position at this point. Retractor was placed in the anus and very prominent internal and external hemorrhoids were identified. One was identified at the 8 o'clock position and a second was identified at the 2 o'clock position. Attention was turned to the 8 o'clock position and it was grasped with a hemorrhoidal clamp. A incision was made in elliptical fashion around the large hemorrhoid and cautery was used to dissect the hemorrhoid staying superficial to the sphincter muscle. Hemorrhoid was then passed off as specimen. Similar technique was used to remove the hemorrhoid from the 2 o'clock position. All further bleeding was controlled with electrocautery. The mucosa was then closed with running 3-0 Vicryl suture leaving the endpoint epidermis opened. The external hemorrhoid that was noted was also excised using cautery. The perianal skin tag was excised using cautery. Hemostasis was noted to be maintained. Gelfoam was placed into the anus as a dressing and ABDs was placed over the top. Patient was awakened in the operating suite and taken to postanesthesia care unit in stable condition.
[2021-05-18 16:13] VITALS: BP 144/84; PULSE 75
== END 2021-05-18 16:13 | disposition home or self-care (01) ==
LOC: OR 11:30
PROVIDERS: ATTEND Surgery
DX: K64.3 Fourth degree hemorrhoids (principal); K64.4 Residual hemorrhoidal skin tags; K57.90 Diverticulosis of intestine, part unspecified, without perforation or abscess without bleeding; K62.1 Rectal polyp; D23.5 Other benign neoplasm of skin of trunk; Z85.46 Personal history of malignant neoplasm of prostate; E78.5 Hyperlipidemia, unspecified; Z79.899 Other long term (current) drug therapy
CPT/HCPCS: 88304; 88305; 45380; 46255; J1100; J0690; J2405; J2001; J3010; J0330; J2704; J1644

== ENCOUNTER → 2022-06-10 | Outpatient (CLI) | payer BC ==
[2022-06-10 14:30] LABS: ALT 23 U/L (10-49); AST 27 U/L (14-35)
== END | disposition home or self-care (01) ==
LOC: LABWHC1 10:22
PROVIDERS: ATTEND Podiatrist Foot & Ankle Surgery
DX: K74.60 Unspecified cirrhosis of liver (principal)
CPT/HCPCS: 36415; 84450; 84460

== ENCOUNTER → 2022-12-13 | Outpatient (CLI) | payer BC ==
--- NOTE | 2022-12-13 15:21 | US ---
EXAMINATION TYPE: US thyroid st tissue head/neck DATE OF EXAM: 12/13/2022 COMPARISON: CT neck 06/03/2020 CLINICAL HISTORY: E04.1 THYROID NODULE. GLAND SIZE: Right Lobe: 4.0 x 1.4 x 1.8 cm Overall Parenchyma: homogenous Left Lobe: 3.3 x 1.2 x 1.7 cm Overall Parenchyma: homogeneous Isthmus Thickness: 0.4 cm NODULES RIGHT: # of nodules measured on right: 1 1. 0.8 X 0.7 x 0.8 cm, round cystic nodule at the mid lateral pole, TIRADS Score: 0 TIRADS Category 1: Benign Composition: Cystic or almost completely cystic (0 points). Recommendation: No FNA This is not definitely seen on prior CT. Bilateral neck scanned, no evidence of lymphadenopathy. IMPRESSION: No suspicious thyroid nodules.
[2022-12-13 18:55] LABS: T4, Free (Free Thyroxine) 1.27 ng/dL (0.800-1.800)
== END | disposition home or self-care (01) ==
LOC: RADUSWWP 14:20
PROVIDERS: ATTEND Otolaryngology
DX: E04.1 Nontoxic single thyroid nodule (principal)
CPT/HCPCS: 76536; 84439; 84443; 84481

== ENCOUNTER → 2023-10-24 | Outpatient (CLI) | payer BC ==
--- NOTE | 2023-10-24 12:14 | US ---
EXAMINATION TYPE: US thyroid st tissue head/neck DATE OF EXAM: 10/24/2023 COMPARISON: NONE CLINICAL INDICATION: Male, 78 years old with history of E04.1 NONTOXIC SINGLE THYROID NODULE; GLAND SIZE: Right Lobe: 4.3 x 1.3 x 1.9 cm Overall Parenchyma: homogeneous Left Lobe: 4.3 x 1.3 x 1.8 cm Overall Parenchyma: homogeneous Isthmus Thickness: 0.2 cm NODULES RIGHT: # of nodules measured on right: 1 1. 0.6 X 0.5 x 0.5 cm, lower lateral, solid or almost completely solid, hypoechoic nodule, which is wider than tall, with ill-defined margins, without echogenic foci. Prior size: 0.7 x 0.7 x 0.6 cm Colloid cyst noted LEFT: # of nodules measured on left: 0 ISTHMUS: # of nodules measured in the isthmus: 0 Bilateral neck scanned, no evidence of lymphadenopathy. IMPRESSION: Moderately suspicious subcentimeter nodule. Consider follow-up in one year. 2017 ACR TI-RADS LEVEL: TR-RADS 4 - Moderately Suspicious: Follow if > 1 cm, FNA if > 1.5 cm *Highest TI-RADS level nodule reported
== END | disposition home or self-care (01) ==
LOC: RADUSWWP 09:10
PROVIDERS: ATTEND Otolaryngology
DX: E04.1 Nontoxic single thyroid nodule (principal)
CPT/HCPCS: 76536

== ENCOUNTER → 2024-02-20 | Outpatient (CLI) | payer BC ==
[2024-02-20 16:13] LABS: Blood Urea Nitrogen 43.1 mg/dL (9.0-27.0); Carbon Dioxide 22.1 mmol/L (21.6-31.8); Chloride 110 mmol/L (96-109); Potassium 4.7 mmol/L (3.5-5.5); Sodium 144 mmol/L (135-145)
== END | disposition home or self-care (01) ==
LOC: LABWHC1 10:45
PROVIDERS: ATTEND Internal Medicine Interventional Cardiology
DX: I10 Essential (primary) hypertension (principal)
CPT/HCPCS: 36415; 80051; 82565; 84520

== ENCOUNTER → 2024-10-01 | Outpatient (CLI) | payer BC ==
[2024-10-01 11:52] LABS: ALT 9 U/L (10-49); AST 14 U/L (14-35); Chol/HDL Ratio 2.63 Ratio; LDL Cholesterol,Calculated 75.9 mg/dL (0.0-131.0); VLDL Calculation 12.66 mg/dL (5.00-40.00)
== END | disposition home or self-care (01) ==
LOC: LABWHC1 06:47
PROVIDERS: ATTEND Internal Medicine Interventional Cardiology
DX: E78.2 Mixed hyperlipidemia (principal)
CPT/HCPCS: 36415; 80061; 84450; 84460

== ENCOUNTER 2025-05-09 10:58 | Emergency (ER) | payer BC ==
--- NOTE | 2025-05-09 12:41 | ED ---
Recheck HPI - General Source: patient, RN notes reviewed Mode of arrival: ambulatory Limitations: no limitations - History of Present Illness MD Complaint: abnormal lab <Fiorella Molina - Last Filed: 05/09/25 12:41> <Marlon Sharma - Last Filed: 05/09/25 13:20> - General Chief Complaint: Recheck/Abnormal Lab/Rx Stated Complaint: abn labs Time Seen by Provider: 05/09/25 12:35 - History of Present Illness Initial Comments: Quick Note: This is a 79-year-old male who presents to the emergency department for low hemoglobin. Patient had blood work done at dialysis 4 days ago and states that he just received a call saying that his hemoglobin was low. States that it was a little bit higher than 6. He had a similar issue 3 weeks ago and required a blood transfusion. Not taking any blood thinners. Denies any blood in his stool or dark/tarry stools. Denies feeling dizzy, weak, lightheaded, or any chest pain/shortness of breath. States that he is essentially asymptomatic. (Fiorella Molina) Dictation was produced using [employer] dictation software. please excuse any grammatical, word or spelling errors. Chief Complaint: 79-year-old male presents to the ER for possible anemia History of Present Illness: Patient is 71-year-old male with history of end- stage renal disease presents to the emergency department for possible anemia and blood transfusion. Has dialysis Monday. Was told by the dialysis center that if he is anemic he can get dialysis if his hemoglobin is less than 7. Patient denies any black stool. Got dialysis on Monday and Monday for treatment. Denies any bleeding. The ROS documented in this emergency department record has been reviewed and confirmed by me. Those systems with pertinent positive or negative responses have been documented in the HPI. All other systems are other negative and/or noncontributory. (Marlon Sharma) - Related Data Home Medications Medication Instructions Recorded Confirmed Atorvastatin [Lipitor] 40 mg PO HS 05/18/18 05/18/21 Aspirin [Adult Low Dose Aspirin EC] 81 mg PO HS 05/13/21 05/18/21 Topiramate [Topamax] 75 mg PO HS 05/13/21 05/18/21 Zolpidem [Ambien] 2.5 mg PO HS 05/18/21 05/18/21 Previous Rx's Medication Instructions Recorded HYDROcodone/APAP 5-325MG [Troup 1 tab PO Q6HR PRN 3 Days #15 tab 05/18/21 5-325] Ibuprofen [Motrin] 800 mg PO Q8H PRN #30 tab 05/18/21 Lidocaine [Anecream 4%] 1 applic TOPICAL TID #30 gm 05/18/21 Sennosides/Docusate Sodium [Senna 1 each PO DAILY #30 tablet 05/18/21 Plus 8.6-50 mg Tablet] Allergies Allergy/AdvReac Type Severity Reaction Status Date / Time No Known Allergies Allergy Verified 05/18/21 11:49 Review of Systems ROS Other: All systems not noted in ROS Statement are negative. <Fiorella Molina - Last Filed: 05/09/25 12:41> ROS Other: All systems not noted in ROS Statement are negative. <Marlon Sharma - Last Filed: 05/09/25 13:20> ROS Statement: Those systems with pertinent positive or pertinent negative responses have been documented in the HPI. Past Medical History Past Medical History: Cancer, Hyperlipidemia, Osteoarthritis (OA), Prostate Disorder Additional Past Medical History / Comment(s): PROSTATE CANCER. benign essetnial tremors. hemorrhoids History of Any Multi-Drug Resistant Organisms: None Reported Past Surgical History: Appendectomy, Hernia Repair, Joint Replacement, Orthopedic Surgery, Prostate Surgery, Tonsillectomy Additional Past Surgical History / Comment(s): LEFT KNEE SURGERY ARTHROSCOPIC , RIGHT KNEE SURGERY ARTHROSCOPIC X2, CATARACT SURGERY-BILATERAL EYES ,INGUINAL HERNIA X3, rt knee replacement, radical prostatectomy Past Anesthesia/Blood Transfusion Reactions: Motion Sickness, Postoperative Nausea & Vomiting (PONV) Past Psychological History: No Psychological Hx Reported Smoking Status: Never smoker Past Alcohol Use History: None Reported Past Drug Use History: None Reported - Past Family History Mother Family Medical History: No Reported History <Fiorella Molina - Last Filed: 05/09/25 12:41> General Exam Limitations: no limitations <Fiorella Molina - Last Filed: 05/09/25 12:41> <Marlon Sharma - Last Filed: 05/09/25 13:20> - General Exam Comments Initial Comments: Visual Physical Exam Vital signs reviewed General: Well-appearing, nontoxic, no acute distress. Head: Normocephalic, atraumatic Eyes: PERRLA, EOMI ENT: Airway patent Chest: Nonlabored breathing Skin: No visual rash, normal skin tone Neuro: Alert and oriented 3 Musculoskeletal: No gross abnormalities (Fiorella Mloina) PHYSICAL EXAM: General Impression: Alert and oriented x3, not in acute distress HEENT: Normocephalic atraumatic, extra-ocular movements intact, pupils equal and reactive to light bilaterally, mucous membranes moist. Cardiovascular: Heart regular rate and rhythm Chest: Able to complete full sentences, no retractions, no tachypnea Abdomen: abdomen soft, non-tender, non-distended, no organomegaly Musculoskeletal: Pulses present and equal in all extremities, no peripheral edema Motor: no focal deficits noted Neurological: CN II-XII grossly intact, no focal motor or sensory deficits noted Skin: Intact with no visualized rashes Psych: Normal affect and mood (Marlon Sharma) Course Vital Signs 05/09/25 11:12 Temperature 97.9 F Pulse Rate 85 Respiratory 20 Rate Blood Pressure 129/74 O2 Sat by Pulse 96 Oximetry Medical Decision Making <Fiorella Molina - Last Filed: 05/09/25 12:41> - Lab Data Result diagrams: 05/09/25 12:38 05/09/25 12:38 <Marlon Sharma - Last Filed: 05/09/25 13:20> - Medical Decision Making I performed the QuickNote portion of this chart. Signed Fiorella Molina PA-C. (Fiorella Molina) Was pt. sent in by a medical professional or institution ([facility], FOUNDATION RELATIONS DIRECTOR, urgent care, hospital, or residential...) When possible be specific @ -No Did you speak to anyone other than the patient for history (EMS, parent, family, police, friend...)? What history was obtained from this source @ -No Did you review nursing and triage notes (agree or disagree)? Why? @ -I reviewed and agree with nursing and triage notes Were old charts reviewed (outside hosp., previous admission, EMS record, old EKG, old radiological studies, urgent care reports/EKG's, residential records)? Report findings @ -No old charts were reviewed Differential Diagnosis (chest pain, altered mental status, abdominal pain women, abdominal pain men, vaginal bleeding, musculoskeletal, weakness, fever, dyspnea, syncope, headache, dizziness, GI bleed, back pain, seizure, CVA, palpatations, mental health)? @ -Anemia, GI bleed, generalized weakness EKG interpreted by me (3pts min.). @ -None done X-rays interpreted by me (1pt min.). @ -None done CT interpreted by me (1pt min.). @ -None done U/S interpreted by me (1pt. min.). @ -None done What testing was considered but not performed or refused? (CT, X-rays, U/S, labs)? Why? @ -None What meds were considered but not given or refused? Why? @ -None Was smoking cessation discussed for >3mins.? @ -No Were there social determinants of health that impacted care today? How? (Homelessness, low income, unemployed, alcoholism, drug addiction, transportation, low edu. Level, literacy, decrease access to med. care, custodial, rehab)? @ -No Was there de-escalation of care discussed even if they declined (Discuss DNR or withdrawal of care, Hospice)? DNR status @ -No What co-morbidities impacted this encounter? (DM, HTN, Smoking, COPD, CAD, Cancer, CVA, ARF, Chemo, Hep., AIDS, mental health diagnosis, sleep apnea, morbid obesity)? @ -ESRD Was patient admitted / discharged? Hospital course, mention meds given and route, prescriptions, significant lab abnormalities, going to OR and other pertinent info. @ -71-year-old male presents emergency department for possible anemia. States that he can get a transfusion of blood unless his hemoglobin is at least 7. Vital signs stable. Patient denies any bleeding issues. No shortness of breath. Physical examination is benign. Hemoglobin 7.0. Rest of labs within acceptable limits. Patient requesting discharge states that he spoke with dialysis center and because his hemoglobin is 7.0 they will accept him for dialysis once he leaves the ER. Patient agreeable plan. Return precautions discussed. States that he will report directly to dialysis. Did you discuss the management of the patient with other professionals (professionals i.e. , PA, FOUNDATION RELATIONS DIRECTOR, lab, RT, psych nurse, protective services social worker, maintenance engineer, teacher, fire control officer, case management specialist)? Give summary @ -No Was critical care preformed (if so, how long)? @ -No Undiagnosed new problem with uncertain prognosis? @ -No Drug Therapy requiring intensive monitoring for toxicity (Heparin, Nitro, I nsulin, Cardizem)? @ -No Were any procedures done? @ -No Diagnosis/symptom? Acute, or Chronic, or Acute on Chronic? Uncomplicated (without systemic symptoms) or Complicated (systemic symptoms)? @ -Possible anemia Side effects of treatment? @ -No Exacerbation, Progression, or Severe Exacerbation? @ -No Poses a threat to life or bodily function? How? (Chest pain, [place], [place], pneumonia, PE, COPD, DKA, ARF, appy, cholecystitis, CVA, Diverticulitis, Homicidal, Suicidal, threat to staff... and all critical care pts) @ -No (Marlon Sharma) - Lab Data Lab Results 05/09/25 05/09/25 05/09/25 Range/Units 12:21 12:38 12:38 WBC 4.86 (4.50-10.00) 10*3/uL RBC 2.12 L (4.40-5.60) 10*6/uL Hgb 7.0 L (13.0-17.0) g/dL Hct 20.8 L (39.6-50.0) % MCV 98.1 H (80.0-97.0) fL MCH 33.0 H (27.0-32.0) pg MCHC 33.7 (32.0-37.0) g/dL Plt Count 116 L (140-440) 10*3/uL MPV 9.4 L (9.5-12.2) fL Immature Gran % (Auto) 0.4 % Neutrophils % 65.9 % Lymphocytes % 22.0 % Monocytes % 8.6 % Eosinophils % 2.5 % Basophils % 0.6 % Immature Gran # 0.02 (0.00-0.04) 10*3/uL Neutrophils # 3.20 (1.80-7.70) 10*3/uL Lymphocytes # 1.07 (0.90-5.00) 10*3/uL Monocytes # 0.42 (0.20-1.00) 10*3/uL Eosinophils # 0.12 (0.04-0.35) 10*3/uL Basophils # 0.03 (0.00-0.10) 10*3/uL PT 10.4 (10.0-12.5) sec INR 0.9 (<1.2) APTT 23.0 (22.0-30.0) sec Sodium (137-145) mmol/L Potassium (3.5-5.1) mmol/L Chloride (98-107) mmol/L Carbon Dioxide (22-30) mmol/L Anion Gap mmol/L BUN (9-20) mg/dL Creatinine (0.66-1.25) mg/dL Est GFR (CKD-EPI)AfAm (>60 ml/min/1.73 sqM) Est GFR (CKD-EPI)NonAf (>60 ml/min/1.73 sqM) Glucose (74-99) mg/dL Calcium (8.4-10.2) mg/dL Total Bilirubin (0.2-1.3) mg/dL AST (17-59) U/L ALT (4-49) U/L Alkaline Phosphatase (38-126) U/L Total Protein (6.3-8.2) g/dL Albumin (3.5-5.0) g/dL Blood Type A Positive Blood Type Recheck No Previous Record Bld Type Recheck Status CABO Indicated Spec Expiration Date 05/12/2025 - 232005/09/25 Range/Units 12:38 WBC (4.50-10.00) 10*3/uL RBC (4.40-5.60) 10*6/uL Hgb (13.0-17.0) g/dL Hct (39.6-50.0) % MCV (80.0-97.0) fL MCH (27.0-32.0) pg MCHC (32.0-37.0) g/dL Plt Count (140-440) 10*3/uL MPV (9.5-12.2) fL Immature Gran % (Auto) % Neutrophils % % Lymphocytes % % Monocytes % % Eosinophils % % Basophils % % Immature Gran # (0.00-0.04) 10*3/uL Neutrophils # (1.80-7.70) 10*3/uL Lymphocytes # (0.90-5.00) 10*3/uL Monocytes # (0.20-1.00) 10*3/uL Eosinophils # (0.04-0.35) 10*3/uL Basophils # (0.00-0.10) 10*3/uL PT (10.0-12.5) sec INR (<1.2) APTT (22.0-30.0) sec Sodium 135 L (137-145) mmol/L Potassium 4.3 (3.5-5.1) mmol/L Chloride 98 (98-107) mmol/L Carbon Dioxide 31 H (22-30) mmol/L Anion Gap 6 mmol/L BUN 48 H (9-20) mg/dL Creatinine 6.36 H (0.66-1.25) mg/dL Est GFR (CKD-EPI)AfAm 9 (>60 ml/min/1.73 sqM) Est GFR (CKD-EPI)NonAf 8 (>60 ml/min/1.73 sqM) Glucose 85 (74-99) mg/dL Calcium 8.7 (8.4-10.2) mg/dL Total Bilirubin 0.3 (0.2-1.3) mg/dL AST 19 (17-59) U/L ALT 10 (4-49) U/L Alkaline Phosphatase 77 (38-126) U/L Total Protein 5.0 L (6.3-8.2) g/dL Albumin 3.1 L (3.5-5.0) g/dL Blood Type Blood Type Recheck Bld Type Recheck Status Spec Expiration Date Disposition <Fiorella Molina - Last Filed: 05/09/25 12:41> Is patient prescribed a controlled substance at d/c from ED?: No Time of Disposition: 13:14 <Marlon Sharma - Last Filed: 05/09/25 13:20> Clinical Impression: Anemia Disposition: HOME SELF-CARE Condition: Fair Instructions (If sedation given, give patient instructions): Anemia (ED) Additional Instructions: Go directly to dialysis Referrals: Nereyda Solorio MD [Primary Care Provider] - 1-2 days
[2025-05-09 12:49] LABS: Basophils # (A) 0.03 10*3/uL (0.00-0.10); Basophils % (A) 0.6 %; Eosinophils # (A) 0.12 10*3/uL (0.04-0.35); Eosinophils % (A) 2.5 %; HCT 20.8 % (39.6-50.0); Lymphocytes # (A) 1.07 10*3/uL (0.90-5.00); MCHC 33.7 g/dL (32.0-37.0); MCV 98.1 fL (80.0-97.0); Mean Platelet Volume 9.4 fL (9.5-12.2); Monocytes # (A) 0.42 10*3/uL (0.20-1.00); Monocytes % (A) 8.6 %; Neutrophils % (A) 65.9 %; Platelet Count 116 10*3/uL (140-440); RBC 2.12 10*6/uL (4.40-5.60); RDW 18.4 % (11.5-14.5); WBC 4.86 10*3/uL (4.50-10.00)
[2025-05-09 13:04] LABS: INR 0.9 (<1.2); Prothrombin Time 10.4 sec (10.0-12.5)
[2025-05-09 13:08] LABS: Chloride 98 mmol/L (98-107); Glucose 85 mg/dL (74-99); Potassium 4.3 mmol/L (3.5-5.1); Sodium 135 mmol/L (137-145)
[2025-05-09 13:09] LABS: ALT 10 U/L (4-49); AST 19 U/L (17-59); African American GFR (CKD) 9 (>60 ml/min/1.73 sqM); Albumin 3.1 g/dL (3.5-5.0); Alkaline Phosphatase 77 U/L (38-126); Anion Gap 6 mmol/L; Blood Urea Nitrogen 48 mg/dL (9-20); Calcium 8.7 mg/dL (8.4-10.2); Carbon Dioxide 31 mmol/L (22-30); Non-African American GFR(CKD) 8 (>60 ml/min/1.73 sqM); Total Bilirubin 0.3 mg/dL (0.2-1.3)
[2025-05-09 13:30] VITALS: BP 111/67; PULSE 77; RESP 18; TEMP 98.1
== END 2025-05-09 13:19 | disposition home or self-care (01) ==
LOC: EC 10:58
DX: D64.9 Anemia, unspecified (principal); N18.6 End stage renal disease; Z99.2 Dependence on renal dialysis
CPT/HCPCS: 36415; 80053; 85025; 85610; 85730; 86850; 86870; 86900; 86901; 99284